=== PATIENT | male | born 1980 | race African-American/Black ===

== ENCOUNTER 2017-03-10 19:21 | Emergency (ER) | payer OTHER ==
[~2017-03-10] VITALS: Ht 172.7 cm; Wt 165.0 kg
[2017-03-10 19:26] VITALS: BP_SYST 167; BP_SYST 173; BP_DIAS 103; BP_DIAS 79; PULSE 79; RESP 18; TEMP 98.4; O2SAT 99
[2017-03-10] MEDS ORDERED: SODIUM CHLOR 0.9% 1000 ML INJ 1,000 ML IV SCH (19:33)
[2017-03-10] MEDS ORDERED: diphenhydrAMINE HCL 50 MG/ML VIAL IV PUSH ONE (19:45)
[2017-03-10] MEDS ORDERED: PROCHLORPERAZINE INJ 10 MG/2 ML VIAL IV PUSH ONE (19:45)
[2017-03-10 20:02] LABS: AUTOMATED NEUTROPHIL # 4.9 TH/MM3 (1.8-7.7); BASOPHIL # 0.1 TH/MM3 (0-0.2); BASOPHIL % 0.8 % (0.0-2.0); EOSINOPHIL # 0.2 TH/MM3 (0-0.4); EOSINOPHIL % 1.9 % (0.0-4.0); HEMATOCRIT 39.9 % (39.0-51.0); HEMO FLAGS DIFF FINAL; LYMPH % 31.7 % (9.0-44.0); LYMPHOCYTE # 2.7 TH/MM3 (1.0-4.8); MEAN CELL VOLUME 89.5 FL (80.0-100.0); MEAN CORPUSCULAR HEMOGLOBIN 30.2 PG (27.0-34.0); MEAN CORPUSCULAR HGB CONC 33.7 % (32.0-36.0); MONO % 8.9 % (0.0-8.0); NEUT % 56.7 % (16.0-70.0); PLATELET COUNT 354 TH/MM3 (150-450); RED BLOOD COUNT 4.45 MIL/MM3 (4.50-5.90); RED CELL DISTRIBUTION WIDTH 13.1 % (11.6-17.2); WHITE BLOOD COUNT 8.6 TH/MM3 (4.0-11.0)
[2017-03-10 20:18] LABS: ANION GAP 7 MEQ/L (5-15); BICARBONATE 27.8 MEQ/L (21.0-32.0); BLOOD UREA NITROGEN 16 MG/DL (7-18); CHLORIDE 104 MEQ/L (98-107); GLOMERULAR FILTRATION RATE 100 ML/MIN (>89); MAGNESIUM 1.9 MG/DL (1.5-2.5); POTASSIUM 3.7 MEQ/L (3.5-5.1); SODIUM (NA) 139 MEQ/L (136-145)
--- NOTE | 2017-03-10 20:26 | RADRPT ---
EXAM DATE/TIME: 03/10/2017 20:08 [place] COMPARISON: No previous studies available for comparison. INDICATIONS : Cephalgia and hypertension today. RADIATION DOSE: 47.11 CTDIvol (mGy) MEDICAL HISTORY : None SURGICAL HISTORY : None. ENCOUNTER: Initial ACUITY: 1 day PAIN SCALE: 5/10 LOCATION: Bilateral head TECHNIQUE: Multiple contiguous axial images were obtained of the head. Using automated exposure control and adj ustment of the mA and/or kV according to patient size, radiation dose was kept as low as reasonably a chievable to obtain optimal diagnostic quality images. FINDINGS: CEREBRUM: The ventricles are normal. No evidence of midline shift, mass lesion, hemorrhage or acute infarction . No extra-axial fluid collections are seen. POSTERIOR FOSSA: The cerebellum and brainstem demonstrate no abnormality. The 4th ventricle is midline. The cerebell opontine angle is unremarkable. EXTRACRANIAL: There is a 13 mm polyp versus mucous retention cyst in the right maxillary sinus that is partially vi sualized. SKULL: The calvaria is intact. No evidence of skull fracture. CONCLUSION: 1. No acute intracranial abnormality is identified. 2. Partially visualized a 13 mm polyp versus mucus retention cyst in the right maxillary sinus. Song Ng MD on March 10, 2017 at 20:22 Board Certified Radiologist. This report was verified electronically.
--- NOTE | 2017-03-10 20:59 | PD ---
HPI Chief Complaint: Headache Time Seen by Provider: 20:53 Travel History International Travel<30 days: No Contact w/Intl Traveler<30days: No Traveled to known affect area: No History of Present Illness HPI 36-year-old male that presents to the ED for evaluation of headache. Patient came by ambulance for evaluation of this. Per patient he was working when he started to develop this headache. Per patient was severe and the patient different from his usual headaches. He does have a history of migraine headaches. She states that he has a history of high blood pressure but he takes no medications. He does have a family history of CVA. He denies any numbness, tilling, weakness. Per patient the pain was pressure-like. 7 out of 10. Does not radiate. No injury. No blood thinner use. He has not taken anything for the headache. Per patient he went to an urgent care and he was told to come here because of his symptoms. He follows up with the resident's for primary care. He denies any other medical issues at this time. [facility] Past Medical History Diminished Hearing: No Migraines: Yes Tetanus Vaccination: Unknown Influenza Vaccination: No Past Surgical History Surgical History: No Previous Surgery Social History Alcohol Use: No Tobacco Use: No Substance Use: No Allergies-Medications (Allergen,Severity, Reaction): Coded Allergies: No Known Allergies (Unverified , 03/10/17) Reported Meds & Prescriptions Reported Meds & Active Scripts Active Active Prescriptions or Reported Medications Unobtainable Review of Systems Except as stated in HPI: all other systems reviewed are Neg Physical Exam Narrative GENERAL: SKIN: Warm and dry. HEAD: Atraumatic. Normocephalic. EYES: Pupils equal and round 4 mm reactive to light and accommodation. No scleral icterus. No injection or drainage. ENT: No nasal bleeding or discharge. Mucous membranes pink and moist. Tongue is midline. No uvula deviation. NECK: Trachea midline. No JVD. CARDIOVASCULAR: Regular rate and rhythm. No murmurs, S3, S4. RESPIRATORY: No accessory muscle use. Clear to auscultation. Breath sounds equal bilaterally. GASTROINTESTINAL: Abdomen soft, non-tender, nondistended. Hepatic and splenic margins not palpable. MUSCULOSKELETAL: Extremities without clubbing, cyanosis, or edema. No obvious deformities. Full range of motion of the upper and lower extremities bilaterally. 2+ pulses bilaterally. No lumbar, thoracic, cervical spine tenderness to palpation. NEUROLOGICAL: Awake and alert. No obvious cranial nerve deficits. Motor grossly within normal limits. Five out of 5 muscle strength in the arms and legs. Normal speech. Romberg test negative. Pronator test negative. 2+ bilaterally. PSYCHIATRIC: Appropriate mood and affect; insight and judgment normal. Data Data Last Documented VS Vital Signs Date Time Temp Pulse Resp B/P Pulse Ox O2 Delivery O2 Flow Rate FiO2 03/10/17 21:13 80 18 153/68 100 Room Air 03/10/17 19:26 98.4 Orders Electrocardiogram (03/10/17 19:33) Complete Blood Count With Diff (03/10/17 19:33) Basic Metabolic Panel (Bmp) (03/10/17 19:33) Troponin I (03/10/17:33) Magnesium (Mg) (03/10/17 19:33) Ct Brain W/O Iv Contrast(Rout) (03/10/17 19:33) Iv Access Insert/Monitor (03/10/17 19:33) Sodium Chlor 0.9% 1000 Ml Inj (Ns 1000 M (03/10/17 19:33) Prochlorperazine Inj (Compazine Inj) (03/10/17 19:45) Diphenhydramine Inj (Benadryl Inj) (03/10/17 19:45) Labs Laboratory Tests Test 03/10/17 19:50 White Blood Count 8.6 TH/MM3 Red Blood Count 4.45 MIL/MM3 Hemoglobin 13.4 GM/DL Hematocrit 39.9 % Mean Corpuscular Volume 89.5 FL Mean Corpuscular Hemoglobin 30.2 PG Mean Corpuscular Hemoglobin 33.7 % Concent Red Cell Distribution Width 13.1 % Platelet Count 354 TH/MM3 Mean Platelet Volume 8.5 FL Neutrophils (%) (Auto) 56.7 % Lymphocytes (%) (Auto) 31.7 % Monocytes (%) (Auto) 8.9 % Eosinophils (%) (Auto) 1.9 % Basophils (%) (Auto) 0.8 % Neutrophils # (Auto) 4.9 TH/MM3 Lymphocytes # (Auto) 2.7 TH/MM3 Monocytes # (Auto) 0.8 TH/MM3 Eosinophils # (Auto) 0.2 TH/MM3 Basophils # (Auto) 0.1 TH/MM3 CBC Comment DIFF FINAL Differential Comment Sodium Level 139 MEQ/L Potassium Level 3.7 MEQ/L Chloride Level 104 MEQ/L Carbon Dioxide Level 27.8 MEQ/L Anion Gap 7 MEQ/L Blood Urea Nitrogen 16 MG/DL Creatinine 1.02 MG/DL Estimat Glomerular Filtration 100 ML/MIN Rate Random Glucose 107 MG/DL Calcium Level 9.3 MG/DL Magnesium Level 1.9 MG/DL Troponin I LESS THAN 0.02 NG/ML MDM Medical Decision Making Medical Screen Exam Complete: Yes Emergency Medical Condition: Yes Medical Record Reviewed: Yes Interpretation(s) CBC & BMP Diagram 03/10/17 19:50 Troponin negative EKG shows sinus rhythm with no sign of acute ischemia or arrhythmia read by me and attending. Last Impressions Head CT 03/10/171932 Signed Impressions: Service Date/Time: Friday, March 10, 2017 20:08 - CONCLUSION: 1. No acute intracranial abnormality is identified. 2. Partially visualized a 13 mm polyp versus mucus retention cyst in the right maxillary sinus. Song Ng MD Differential Diagnosis Hypertension versus cephalgia versus normal exam versus migraine headache Narrative Course 36-year-old male that presents to the ED for evaluation of headache and high blood pressure. Patient was properly examined and was found to have signs and symptoms consistent with appears to be hypertension with appears to be a atypical migraine headache. Patient is a rattling type no sign of acute disease. Patient was given IV pain medications with some relief. Labs and imaging were done and were essentially unremarkable. Patient was reassured. At this time I will give patient a prescription for diclofenac sodium for his headaches and told to follow up closely with PCP for further monitoring of the blood pressure. I did give him a prescription for lisinopril but I do recommend that he monitors his blood pressure and if the blood pressure continues to be above 150 systolic he can start this medication but I highly recommend that he follows up closely with PCP first before starting this medication. She agrees and understands. Patient's blood pressure came down with pain medication. Patient agrees with plan. Follow with PCP. See ED for worsening symptoms. Diagnosis Primary Impression: Cephalgia Qualified Code: G44.209 - Acute non intractable tension-type headache Additional Impression: Hypertension Qualified Code: I10 - Essential hypertension Patient Instructions: General Instructions Additional Instructions: Take medications only if needed. Follow with PCP. See ED for any worsening symptoms. Med/Other Pt SpecificInfo: Prescription(s) given Scripts Lisinopril 5 Mg Tab5 Mg PO DAILY #30 TAB Ref 0 Prov:Amber Ordonez MD 03/10/[address] 75 Mg Tabdr75 Mg PO BID PRN (PAIN SCALE 1 TO 10) #20 TAB Prov:Amber Ordonez MD 03/10/17 Disposition: 01 DISCHARGE HOME Condition: Stable Jayson Fuentes Mar 10, 2017 20:59
[2017-03-10 21:13] VITALS: BP 153/68; PULSE 80; RESP 18; O2SAT 100
[2017-03-10] MEDS ORDERED: DICL75TA PO (21:16)
[2017-03-10] MEDS ORDERED: LISI-519 PO (21:16)
--- NOTE | 2017-03-11 17:13 | EKG ---
Date Performed: 03/10/2017 Time Performed: 20:16:49 PTAGE: 36 years EKG: Sinus rhythm NONSPECIFIC T-WAVE ABNORMALITY ABNORMAL ECG NO PREVIOUS TRACING DOCTOR: Sayda Flores Interpretating Date/Time 03/11/2017 17:08:30
== END 2017-03-10 21:28 | disposition home or self-care (01) ==
LOC: NEPC 19:21
DX: G44.209 Tension-type headache, unspecified, not intractable (principal); I10 Essential (primary) hypertension; R94.31 Abnormal electrocardiogram [ECG] [EKG]
CPT/HCPCS: 70450; 80048; 83735; 84484; 85025; 93005; 96361; 96374; 96375; 99285; J0780; J1200; J7030

== ENCOUNTER 2017-11-03 14:45 | Emergency (ER) | payer OTHER ==
[~2017-11-03 14:45] MED LIST: BENZ1CAP51 PO; BLOOD GLUCOSE M1 KIT; CLOT1CRE6 TOPICAL; DICL75TA PO; GUAI100S5 PO; LANCETS1 MI1; LISI10TA3 PO; META48.53 PO; METF500T PO; ONETKIT; PHEN60SU RECTAL
[2017-11-03 14:47] VITALS: BP 133/76; PULSE 84; RESP 14; TEMP 97.5; O2SAT 96
[2017-11-03 16:55] LABS: BILIRUBIN, URINE NEG (NEG); BLOOD, URINE NEG (NEG); GLUCOSE,URINE 1000 mg/dL (NEG); KETONE, URINE 40 mg/dL (NEG); NITRITE,URINE NEG (NEG); PH, URINE 5.5 (5.0-8.5); SQUAMOUS EPITHELIAL CELL URINE <1 /hpf (0-5); URINE COLOR LIGHT-YELLOW (YELLW/STRAW); URINE LEUKOCYTE ESTERASE NEG (NEG)
[2017-11-03 17:10] LABS: AUTOMATED NEUTROPHIL # 4.4 TH/MM3 (1.8-7.7); BASOPHIL % 0.6 % (0.0-2.0); EOSINOPHIL # 0.2 TH/MM3 (0-0.4); EOSINOPHIL % 2.1 % (0.0-4.0); HEMATOCRIT 43.7 % (39.0-51.0); HEMOGLOBIN 14.8 GM/DL (13.0-17.0); LYMPHOCYTE # 3.2 TH/MM3 (1.0-4.8); MEAN CORPUSCULAR HEMOGLOBIN 31.2 PG (27.0-34.0); MEAN CORPUSCULAR HGB CONC 33.8 % (32.0-36.0); MEAN PLATELET VOLUME 9.8 FL (7.0-11.0); MONOCYTE # 0.6 TH/MM3 (0-0.9); NEUT % 52.3 % (16.0-70.0); PLATELET COUNT 266 TH/MM3 (150-450); RED BLOOD COUNT 4.75 MIL/MM3 (4.50-5.90); RED CELL DISTRIBUTION WIDTH 13.2 % (11.6-17.2); WHITE BLOOD COUNT 8.4 TH/MM3 (4.0-11.0)
[2017-11-03 17:20] LABS: BICARBONATE 23.6 MEQ/L (21.0-32.0); CALCIUM 9.8 MG/DL (8.5-10.1); CREATININE 1.12 MG/DL (0.60-1.30)
[2017-11-03] MEDS ORDERED: SODIUM CHLOR 0.9% 1000 ML INJ 1,000 ML IV ONE ×2 (17:30)
[2017-11-03 17:31] VITALS: BP 116/70; PULSE 81; RESP 18; O2SAT 97
[2017-11-03] MEDS ORDERED: INSULIN HUMAN REGULAR 1,000 UNITS/10 ML VIAL IV PUSH ONE (17:45)
--- NOTE | 2017-11-03 17:45 | PD ---
HPI Chief Complaint: Diabetic Time Seen by Provider: 17:09 Travel History International Travel<30 days: No Contact w/Intl Traveler<30days: No Traveled to known affect area: No History of Present Illness HPI This patient complains of hyperglycemia. He was feeling lightheaded at work and so he went to an outpatient visit at the diabetic clinic and they checked his sugar and it was over 500. He was advised to come here. He denies any fever or vomiting or diarrhea. He takes metformin only for diabetes. He did not take any medication today. He does not use insulin. Symptoms severity is moderate. No alleviating factors. No exacerbating factors. Duration one day PFSH Past Medical History Diabetes: Yes Patient Takes Glucophage: Yes Diminished Hearing: No Migraines: Yes Social History Alcohol Use: No Tobacco Use: No Substance Use: No Allergies-Medications (Allergen,Severity, Reaction): Coded Allergies: No Known Allergies (Unverified Adverse Reaction, Unknown, 09/12/17) Reported Meds & Prescriptions Reported Meds & Active Scripts Active Lancets 1 Mis Mis Ea .ROUTE DIRECTED BrightNesttouch Ultra Mini W/Device (Device) 1 Kit Kit Kit .ROUTE DIRECTED Blood Glucose Monitoring W/Device (Device) 1 Kit Kit Kit .ROUTE DIRECTED Metformin (Metformin HCl) 500 Mg Tab 1,000 Mg PO BIDPC Review of Systems General / Constitutional: No: Fever Eyes: No: Visual changes HENT: Positive: Lightheadedness, No: Headaches Cardiovascular: No: Chest Pain or Discomfort Respiratory: No: Shortness of Breath Gastrointestinal: No: Abdominal Pain Genitourinary: No: Dysuria Musculoskeletal: No: Pain Skin: No Rash Neurologic: No: Weakness Psychiatric: No: Depression Endocrine: No: Polydipsia Hematologic/Lymphatic: No: Easy Bruising Physical Exam Narrative GENERAL: Morbidly obese well-developed patient in no apparent distress. SKIN: Focused skin assessment reveals no rash and nodules. Skin is Warm and dry. HEAD: Atraumatic. Normocephalic. EYES: Pupils equal and round. No scleral icterus. No injection or drainage. ENT: No nasal bleeding or discharge. Mucous membranes pink and moist. NECK: Trachea midline. No JVD. CARDIOVASCULAR: Regular rate and rhythm. No murmur appreciated. RESPIRATORY: No accessory muscle use. Clear to auscultation. Breath sounds equal bilaterally. GASTROINTESTINAL: Abdomen soft, non-tender, nondistended. Hepatic and splenic margins not palpable. MUSCULOSKELETAL: No obvious deformities. No clubbing. No cyanosis. No edema. NEUROLOGICAL: Awake and alert. No obvious cranial nerve deficits. Motor grossly within normal limits. Normal speech. PSYCHIATRIC: Appropriate mood and affect; insight and judgment normal. Data Data Last Documented VS Vital Signs Date Time Temp Pulse Resp B/P (MAP) Pulse Ox O2 Delivery O2 Flow Rate FiO2 11/03/17 17:31 81 18 116/70 (85) 97 Room Air 11/03/17 14:47 97.5 Orders Orders Complete Blood Count With Diff (11/03/17 14:55) Basic Metabolic Panel (Bmp) (11/03/17 14:55) Urinalysis - C+S If Indicated (11/03/17 14:55) Beta Hydroxybutyrate (Acetone) (11/03/17 14:55) Sodium Chlor 0.9% 1000 Ml Inj (Ns 1000 M (11/03/17 17:30) Sodium Chlor 0.9% 1000 Ml Inj (Ns 1000 M (11/03/17 17:30) Insulin Human Regular Inj (Novolin R Inj (11/03/17 17:45) Labs Laboratory Tests Test 11/03/17 15:33 11/03/17 15:49 Urine Color LIGHT-YELLOW Urine Turbidity CLEAR Urine pH 5.5 Urine Specific [place] 1.034 Urine Protein NEG mg/dL Urine Glucose (UA) 1000 mg/dL Urine Ketones 40 mg/dL Urine Occult Blood NEG Urine Nitrite NEG Urine Bilirubin NEG Urine Urobilinogen LESS THAN 2.0 MG/DL Urine Leukocyte Esterase NEG Urine RBC LESS THAN 1 /hpf Urine WBC LESS THAN 1 /hpf Urine Squamous Epithelial Cells <1 /hpf Microscopic Urinalysis Comment CULT NOT INDICATED White Blood Count 8.4 TH/MM3 Red Blood Count 4.75 MIL/MM3 Hemoglobin 14.8 GM/DL Hematocrit 43.7 % Mean Corpuscular Volume 92.0 FL Mean Corpuscular Hemoglobin 31.2 PG Mean Corpuscular Hemoglobin Concent 33.8 % Red Cell Distribution Width 13.2 % Platelet Count 266 TH/MM3 Mean Platelet Volume 9.8 FL Neutrophils (%) (Auto) 52.3 % Lymphocytes (%) (Auto) 38.0 % Monocytes (%) (Auto) 7.0 % Eosinophils (%) (Auto) 2.1 % Basophils (%) (Auto) 0.6 % Neutrophils # (Auto) 4.4 TH/MM3 Lymphocytes # (Auto) 3.2 TH/MM3 Monocytes # (Auto) 0.6 TH/MM3 Eosinophils # (Auto) 0.2 TH/MM3 Basophils # (Auto) 0.0 TH/MM3 CBC Comment DIFF FINAL Differential Comment Blood Urea Nitrogen 15 MG/DL Creatinine 1.12 MG/DL Random Glucose 415 MG/DL Calcium Level 9.8 MG/DL Sodium Level 134 MEQ/L Potassium Level 3.9 MEQ/L Chloride Level 99 MEQ/L Carbon Dioxide Level 23.6 MEQ/L Anion Gap 11 MEQ/L Estimat Glomerular Filtration Rate 89 ML/MIN B-Hydroxybutyrate 1.50 MMOL/L MDM Medical Decision Making Medical Screen Exam Complete: Yes Emergency Medical Condition: Yes Medical Record Reviewed: Yes Differential Diagnosis DKA, hyperglycemia, noncompliance Narrative Course I have reviewed the patient's electronic medical record. Accu-Chek here is 415 IV placed I gave him 2 L normal saline IV bolus as well as 10 units IV regular insulin CBC normal Metabolic profile reveals hyperglycemia but normal bicarbonate Beta hydroxybutyrate is 1.5 Urinalysis clean Repeat Accu-Chek 257 Patient has hyperglycemia without DKA and now stable for outpatient follow-up Diagnosis Primary Impression: Hyperglycemia due to type 2 diabetes mellitus Qualified Codes: E11.65 - Type 2 diabetes mellitus with hyperglycemia Additional Impression: Lightheadedness Additional Instructions: The patient was advised to follow up with their physician and return if they worsen. Med/Other Pt SpecificInfo: Other Disposition: 01 DISCHARGE HOME Condition: Stable Carlos Tinoco MD Nov 03, 2017 17:45
== END 2017-11-03 20:15 | disposition home or self-care (01) ==
LOC: NEPC 14:45
DX: E11.65 Type 2 diabetes mellitus with hyperglycemia (principal); R42 Dizziness and giddiness; Z79.84 Long term (current) use of oral hypoglycemic drugs
CPT/HCPCS: 80048; 81001; 82010; 85025; 96361; 96374; 99284; J1815; J7030